=== PATIENT | female | born 1960 | race Two or more races ===

== ENCOUNTER 2019-07-15 10:48 | Inpatient (IN) | payer MEDICAID ==
[~2019-07-15] VITALS: Ht 157.5 cm; Wt 78.5 kg
[2019-07-15] MEDS ORDERED: MELA5TAB3 PO (11:04)
[2019-07-15] MEDS ORDERED: ARIP10TA8 PO (11:04)
[2019-07-15] MEDS ORDERED: METF-960 PO (11:04)
[2019-07-15] MEDS ORDERED: LEVO25TA9 PO (11:04)
[2019-07-15 11:14] VITALS: BP 152/92
[2019-07-15] MEDS ORDERED: HALOPERIDOL 5 MG TABLET PO PRN (12:15)
[2019-07-15] MEDS ORDERED: PNEUMOCOCCAL VACCINE POLYVALENT 0.5 ML VIAL [PPSV23] IM ONE (13:00)
[2019-07-15 14:24] LABS: GLUCOMETER DEV NAME(LOC) BV2S.; GLUCOSE,POINT OF CARE 150 MG/DL (70-110)
[2019-07-15] MEDS ORDERED: PETROLATUM,WHITE 28 GM JELLY TP PRN (15:00)
[2019-07-15] MEDS ORDERED: ONDANSETRON HCL 4 MG TABLET PO PRN (15:00)
[2019-07-15] MEDS ORDERED: NICOTINE 14 MG/24 HOUR PATCH TD PRN (15:00)
[2019-07-15] MEDS ORDERED: GuaiFENesin/D-METHORPHAN [SUGAR-FREE] 200-20MG/10 ML SYRUP UDCUP PO PRN (15:00)
[2019-07-15] MEDS ORDERED: MAG HYDROX/AL HYDROX/SIMETH ES 30 ML SUSPENSION UDCUP PO PRN (15:00)
[2019-07-15] MEDS ORDERED: ALBUTEROL SULFATE HFA 90 MCG/PUFF 8 GM INHALER IH PRN (15:00)
[2019-07-15] MEDS ORDERED: IBUPROFEN 400 MG TABLET PO PRN (15:00)
[2019-07-15] MEDS ORDERED: LOPERAMIDE HCL 2 MG CAPSULE PO PRN (15:00)
[2019-07-15] MEDS ORDERED: DOCUSATE SODIUM 100 MG CAPSULE PO PRN (15:00)
[2019-07-15] MEDS ORDERED: CloNIDine HCL 0.1 MG TABLET PO PRN (15:00)
[2019-07-15] MEDS ORDERED: MAGNESIUM HYDROXIDE SUSPENSION 30 ML UDCUP PO PRN (15:00)
[2019-07-15 16:17] VITALS: BP 140/93
[2019-07-15] MEDS: LORazepam 2 MG TABLET PO PRN (16:29)
[2019-07-15] MEDS: MetFORMIN HCL 500 MG TABLET PO SCH (16:29)
[2019-07-16] MEDS: LORazepam 2 MG TABLET PO PRN (04:03)
[2019-07-16 04:24] VITALS: BP 142/93
[2019-07-16 06:48] LABS: GLUCOMETER DEV NAME(LOC) BV2S.; GLUCOSE,POINT OF CARE 96 MG/DL (70-110)
[2019-07-16] MEDS: LEVOTHYROXINE SODIUM 125 MCG TABLET PO SCH (07:00)
[2019-07-16] MEDS: MetFORMIN HCL 500 MG TABLET PO SCH ×2 (07:02→16:58)
[2019-07-16 09:02] VITALS: BP 117/74
[2019-07-16] MEDS ORDERED: LEVO125 PO (11:02)
[2019-07-16] MEDS: ARIPiprazole 10 MG TABLET PO SCH (12:33)
[2019-07-16 16:06] VITALS: BP 130/73
[2019-07-16 16:53] LABS: GLUCOMETER DEV NAME(LOC) BV2S.; GLUCOSE,POINT OF CARE 141 MG/DL (70-110)
[2019-07-16] MEDS ORDERED: SERTRALINE HCL 50 MG TABLET PO SCH (21:00)
[2019-07-16] MEDS: ZOLPIDEM TARTRATE 10 MG TABLET PO PRN (21:11)
[2019-07-17 05:55] LABS: GLUCOMETER DEV NAME(LOC) BV2S.; GLUCOSE,POINT OF CARE 109 MG/DL (70-110)
[2019-07-17 06:30] VITALS: BP 139/91
[2019-07-17] MEDS: MetFORMIN HCL 500 MG TABLET PO SCH ×2 (06:44→17:04)
[2019-07-17] MEDS: LEVOTHYROXINE SODIUM 125 MCG TABLET PO SCH (06:44)
[2019-07-17 07:21] LABS: BASOPHILS % (AUTO) 0.8 % (0.0-2.0); EOSINOPHILS % (AUTO) 3.7 % (1.0-6.0); HEMATOCRIT 40.5 % (36-46); HEMOGLOBIN 13.6 g/dL (12.0-16.0); LYMPHOCYTES # (AUTO) 2.6 K/uL (1.0-4.8); LYMPHOCYTES % (AUTO) 44.2 % (22.0-44.0); MEAN CORPUSCULAR HEMOGLOBIN 29.9 pg (26.0-34.0); MEAN CORPUSCULAR HGB CONC 33.7 G/dL (31.0-37.0); MEAN CORPUSCULAR VOLUME 89 fL (80-100); MONOCYTES # (AUTO) 0.4 K/uL (0.1-1.0); MONOCYTES % (AUTO) 6.7 % (2.0-9.0); NEUTROPHILS # (AUTO) 2.7 K/uL (1.8-7.7); NEUTROPHILS % (AUTO) 44.6 % (40.0-70.0); PLATELET COUNT (AUTO) 253 K/uL (150-450); RED BLOOD CELL COUNT(AUTO) 4.57 MIL/uL (4.00-5.20); RED CELL DISTRIBUTION WIDTH 13.5 % (11.5-14.5)
[2019-07-17 07:45] LABS: HEMOGLOBIN A1C 6.3 % (4.5-6.2)
[2019-07-17 07:51] LABS: ALANINE AMINOTRANSFERASE 22 U/L (12-78); ALBUMIN 3.4 g/dL (3.4-5.0); ALKALINE PHOSPHATASE 63 U/L (46-116); ANION GAP 6 mmol/L (8-16); ASPARTATE AMINOTRANSFERASE 14 U/L (15-37); BILIRUBIN,TOTAL 0.4 mg/dL (0.1-1.0); CALCIUM, TOTAL 9.1 mg/dL (8.8-10.5); CARBON DIOXIDE 31 mmol/L (22-29); CHLORIDE 103 mmol/L (98-107); CHOL/HDL RATIO 3.6 (3.9-5.7); CHOLESTEROL 187 mg/dL (131-200); CREATININE 0.73 mg/dL (0.60-1.30); FREE T4 (FREE THYROXINE) 1.52 ng/dL (0.76-1.46); GLOMERULAR FILTR. RATE CALC > 60 mL/min (>60); GLUCOSE,RANDOM 100 mg/dL (70-110); HDL CHOLESTEROL 52 mg/dL (40-60); LDL CHOL (CALC.) 112 mg/dL (0-130); POTASSIUM 4.1 mmol/L (3.5-5.1); SODIUM SERUM 140 mmol/L (136-145); THYROID STIMULATING HORMONE 0.17 uIU/mL (0.36-3.74); TOTAL PROTEIN, SERUM 6.4 g/dL (6.4-8.2); TRIGLYCERIDES 113 mg/dL (15-150); UREA NITROGEN, BLOOD 15 mg/dL (7-18)
[2019-07-17] MEDS: ARIPiprazole 10 MG TABLET PO SCH (08:15)
[2019-07-17 08:23] VITALS: BP 140/60
[2019-07-17 16:47] LABS: GLUCOMETER DEV NAME(LOC) BV2S.; GLUCOSE,POINT OF CARE 118 MG/DL (70-110)
[2019-07-17 18:03] VITALS: BP 140/80
[2019-07-17] MEDS ORDERED: SERTRALINE HCL 50 MG TABLET PO SCH (21:00)
[2019-07-18 03:29] LABS: GLUCOMETER DEV NAME(LOC) BV2S.; GLUCOSE,POINT OF CARE 106 MG/DL (70-110)
[2019-07-18 04:49] VITALS: BP 132/83
[2019-07-18 06:31] LABS: GLUCOMETER DEV NAME(LOC) BV2S.; GLUCOSE,POINT OF CARE 146 MG/DL (70-110)
[2019-07-18] MEDS: LEVOTHYROXINE SODIUM 125 MCG TABLET PO SCH (07:11)
[2019-07-18] MEDS: MetFORMIN HCL 500 MG TABLET PO SCH ×2 (07:11→16:58)
[2019-07-18] MEDS: ARIPiprazole 10 MG TABLET PO SCH (08:05)
[2019-07-18 08:45] VITALS: BP 129/70
[2019-07-18 16:06] VITALS: BP 139/66
[2019-07-18 17:02] LABS: GLUCOMETER DEV NAME(LOC) BV2S.; GLUCOSE,POINT OF CARE 108 MG/DL (70-110)
[2019-07-18] MEDS: SERTRALINE HCL 100 MG TABLET PO SCH (20:03)
[2019-07-18] MEDS: ZOLPIDEM TARTRATE 10 MG TABLET PO PRN (22:48)
[2019-07-19 06:17] VITALS: BP 139/85
[2019-07-19 06:32] LABS: GLUCOMETER DEV NAME(LOC) BV2S.; GLUCOSE,POINT OF CARE 103 MG/DL (70-110)
[2019-07-19] MEDS: LEVOTHYROXINE SODIUM 125 MCG TABLET PO SCH (06:50)
[2019-07-19] MEDS: MetFORMIN HCL 500 MG TABLET PO SCH ×2 (06:50→17:29)
[2019-07-19] MEDS: ARIPiprazole 10 MG TABLET PO SCH (08:44)
[2019-07-19 08:45] VITALS: BP 135/80
[2019-07-19 16:49] VITALS: BP 129/80
[2019-07-19 19:09] LABS: GLUCOMETER DEV NAME(LOC) BV2S.; GLUCOSE,POINT OF CARE 134 MG/DL (70-110)
[2019-07-19 20:44] LABS: GLUCOMETER DEV NAME(LOC) BV2S.; GLUCOSE,POINT OF CARE 101 MG/DL (70-110)
[2019-07-19] MEDS: SERTRALINE HCL 100 MG TABLET PO SCH (21:22)
[2019-07-19] MEDS: ZOLPIDEM TARTRATE 10 MG TABLET PO PRN (21:22)
[2019-07-20 06:04] VITALS: BP 132/70
[2019-07-20 06:24] LABS: GLUCOMETER DEV NAME(LOC) BV2S.; GLUCOSE,POINT OF CARE 105 MG/DL (70-110)
[2019-07-20] MEDS: LEVOTHYROXINE SODIUM 125 MCG TABLET PO SCH (06:41)
[2019-07-20] MEDS: MetFORMIN HCL 500 MG TABLET PO SCH (06:41)
[2019-07-20 08:07] VITALS: BP 141/71
[2019-07-20] MEDS: ARIPiprazole 10 MG TABLET PO SCH (08:54)
[2019-07-20] MEDS ORDERED: METF-960 PO (10:04)
[2019-07-20] MEDS ORDERED: LEVO125T95 PO (10:04)
[2019-07-20] MEDS ORDERED: SERT100T12 PO (10:04)
[2019-07-20] MEDS ORDERED: ARIP10TA8 PO (10:04)
== END 2019-07-20 10:55 | disposition home or self-care (01) | DRG 750 ==
LOC: B2S 12:29
PROVIDERS: ADMIT Psychiatry & Neurology Psychiatry; ATTEND Psychiatry & Neurology Psychiatry
DX: F25.1 Schizoaffective disorder, depressive type (principal); R45.851 Suicidal ideations; E11.9 Type 2 diabetes mellitus without complications; F41.9 Anxiety disorder, unspecified; I10 Essential (primary) hypertension; E03.9 Hypothyroidism, unspecified; R00.0 Tachycardia, unspecified; R41.843 Psychomotor deficit; R45.87 Impulsiveness; Z79.899 Other long term (current) drug therapy; Z88.0 Allergy status to penicillin; Z88.8 Allergy status to other drugs, medicaments and biological substances
CPT/HCPCS: 83036; 84439; 84443; 90732